=== PATIENT | male | born 1985 | race Caucasian/White ===

== ENCOUNTER 2023-12-03 18:13 | Outpatient (OUT) | payer BC, SELFPAY ==
--- NOTE | 2023-12-03 | XR_ITS ---
[facility] [place] [id number] Patient Name: NEGIN URBAN MRN: [id number] date: 1985 Sex: M Assigned Patient Location: [facility] Current Patient Location: Accession/Order Number: [id number] Exam Date: 12/03/2023 18:25 Report Date: 12/05/2023 04:49 At the request of: MARC LI Procedure: XR lumbar spine min 4V EXAMINATION: XR lumbar spine min 4V HISTORY: LOW BACK PAIN , chronic COMPARISON: No relevant comparison available. FINDINGS: BONES: No significant spondylosis, scoliosis, fracture, or visible bony lesion. DISC SPACES: Mild-moderate narrowing L1-L2, L5-S1. PARASPINOUS: Negative. No paraspinous abnormality is seen. OTHER: Negative. XR/XR lumbar spine min 4V IMPRESSION: 1. Disc space narrowing at L1-L2 and L5-S1 which may contribute to patient's symptoms. Consider MRI for further evaluation. Electronically authenticated by: VERENA SEQUEIRA Date: 12/05/2023 04:49
--- NOTE | 2023-12-03 | US_ITS ---
[facility] [place] [id number] Patient Name: NEGIN URBAN MRN: [id number] date: 1985 Sex: M Assigned Patient Location: RAD Current Patient Location: RAD Accession/Order Number: [id number] Exam Date: 12/03/2023 19:00 Report Date: 12/05/2023 05:24 At the request of: MARC LI Procedure: US extremity nonvascular RT EXAMINATION: US extremity nonvascular RT HISTORY: Right inguinal hernia COMPARISON: No relevant comparison available. FINDINGS: Right inguinal region evaluation demonstrates active herniation of soft tissue into the inguinal canal during Valsalva up to 5.8 x 0.6 x 2.9 cm in size. Left inguinal region evaluation demonstrates active herniation of soft tissue into the inguinal canal during Valsalva up to 2.2 x 0.8 x 1.8 cm. US/US extremity nonvascular RT IMPRESSION: 1. Bilateral inguinal hernias without incarceration. Electronically authenticated by: VERENA SEQUEIRA Date: 12/05/2023 05:24
== END 2023-12-03 18:14 | disposition home or self-care (01) ==
LOC: RAD 18:14
PROVIDERS: PCP Nurse Practitioner Family; Visit Provider Nurse Practitioner Family
DX: M54.50 Low back pain, unspecified (principal); K40.20 Bilateral inguinal hernia, without obstruction or gangrene, not specified as recurrent
CPT/HCPCS: 72110; 76882

== ENCOUNTER 2024-01-28 07:26 | Outpatient (OUT) | payer BC, SELFPAY ==
--- OUTSIDE RECORDS SUMMARY | 2024-01-28 07:29 | XMS_ITS | CCD ---
Author Organization [facility] Care Team Providers Care Management Rep Name Role Phone MARC LI Primary Care Physician [phone] MARC LI Referring John Kyle Attending Unavailable MARC LI Referring Jonh Kyle Attending Unavailable Allergies Allergy Classification Reported Allergen(s) Allergy Type Date of Onset Reaction(s) Facility (1 source) No Known Medication Allergies; Translations: [No Known Medication Allergies] Propensity to adverse reactions (disorder) [facility] Repository Problems Problem Classification Problem Date Documented Da te Episodic/Chronic Abdominal hernia (6 sources) Right inguinal hernia ; Translations: [Unilateral inguinal hernia, without obstruction or gangrene, not specified as recurrent] Onset: 12-31-2023 11-28-2023 Episodic Disorders of teeth and jaw (5 sources) Dental caries; Translations: [Dental caries, unspecified] 11-28-2023 Episodic Spondylosis; intervertebral disc disorders; other back problems (4 sources) Low back pain; Translations: [Low back pain] 11-28-2023 Episodic Results Test Name Value Interpretation Reference Range Facil ity Consent for Procedure/Surger yon 01-01-2024 Consent for Procedure/Surgery [id number] #1.00TIFF Normal [facility] Facesheeton 01-01-2024 Facesheet [id number]# 1.00TIFF Normal [facility] Ambulatory Visit Summaryon 0 12-31-2023 Ambulatory Visit Summary NEGIN URBAN :1985 Visit Date:12/31/2023 Ambulatory Visit Instructions Your Diagnosis Reducible right inguinal hernia Your Care Team Attending Physician - John WILLETT MD Primary Care Physician - MARC LI CNP Referring Physician - MARC LI CNP Procedures Performed None. Discharge Vitals Heart Rate (Peripheral) 72 Respiratory Rate 16 Blood Pressure 114/78 Height 180.34 cm Height 71 in Weight 81.2 kg Weight 178.64 lb BMI 24.97 Allergies No Known Allergies No Known Medication Allergies Problems Ongoing - Any problem that you are currently receiving treatment for. Dental caries Reducible right inguinal hernia Patient Survey You may receive a survey via text or e-mail asking about your office visit. Please share your experience with us by completing your survey. We appreciate your feedback and thank you for choosing us for your care. Normal [facility] Physician Referralon 024 Physician Referral [id number] #1.00TIFF Normal [facility] RAD - Ultrasound Reporton RAD - Ultrasound Report [id number] #1.00TIFF Normal [facility] Urgent Care Office/Clinic No luly 11-16-2021 Urgent Care Office/Clinic Note Chief Complaint Sinus congestion for 2 weeks. History of Present Illness This is a 36-year-old male patient presenting to urgent care this afternoon with complaints of of nasal/sinus congestion with thick drainage and facial pressure for at least 2 weeks. Patient reports that over the last few days he is also began to develop a cough occasionally productive of sputum. Patient reports he has been taking Mucinex in attempt to treat his symptoms, he states he felt like it was working at first but that is no longer the case. Patient denies any known sick contacts or exposures. Patient denies nausea, vomiting, diarrhea or change in sense of taste or smell. Patient denies fevers, chills, body aches or fatigue. Review of Systems General: No fever, chills, body aches or fatigue. HEENT: No eye pain. No ear pain. Patient reports nasal/sinus congestion with pressure and drainage, denies sore throat. Cardiovascular: No chest pain, palpitations, or syncope. Pulmonary: No shortness of breath, wheezing. Patient reports nonproductive cough. GI: No nausea, vomiting or diarrhea. No abdominal pain. Musculoskeletal: No weakness, joint pain, back pain. No myalgias. Neuro: No headache. No dizziness. Physical Exam General: well-developed, in no acute distress. Patient's voice sounds nasally congested. Neuro: Alert and oriented. Gait is steady. Speech is clear and appropriate. Eyes: Normal sclera. Nose: No visible drainage. Ears: Canals visualized without any erythema, edema, or discharge. Minimal cerumen visualized in the canals bilaterally. TM's visible and intact, pearly banda. No erythema, edema, or presence of a fluid line bilaterally. Good light reflex. Pharynx: Oropharynx moist, pink without erythema, edema, or exudate. Mucous membranes moist. Sinuses: Moderate tenderness of the frontal and maxillary sinuses. Neck: Trachea midline. No lymphadenopathy. CV: Regular rate and rhythm. No murmurs, gallops, or rubs. Lungs: Clear to auscultation bilaterally. No wheezes, crackles, or rhonchi. Good air exchange bilaterally. Skin: Warm, dry, intact. No rashes, lesions, or open wounds appreciated on exposed areas of skin. Additional Vitals No qualifying data available. Assessment/Plan 1. Upper respiratory infection Take medication as prescribed. Symptomatic treatment at home. Increase fluid intake and rest. Use a cool mist humidifier, Vicks Vapor rub, and elevating head of bed for sleep. May take Tylenol (650 mg every 6 hours) and ibuprofen (up to 800 mg every 8 hrs) as directed on packaging. Recommend bozd-hwe-lpkmnzz daytime antihistamine such as Zyrtec, Claritin or Pushpa, as well as fluticasone (Flonase) nasal spray daily to help with your nasal congestion/drainage. Emxp-dfv-geazjcy Delsym (dextromethorphan) every 12 hours as needed for dry cough. Iecl-sue-gtluvyg Mucinex (Guifenisen) for congestion, if your cough is nonproductive. [place] nasal spray (or generic saline spray) for nasal congestion. Follow up with primary care physician in the next 5-7 days or sooner if needed. Go to emergency department for new or worsening of symptoms. Review attached education for viral illness. Ordered: amoxicillin-clavulan ate, 1 tabs, Oral, BID, X 7 days, # 14 tabs, 0 Refill(s), 11/23/21 16:57:00 EDT benzonatate, 1 caps, Oral, TID, PRN, X 7 days, # 21 caps, 0 Refill(s), 11/23/21 16:57:00 EDT Medical Decision Making Chronic conditions NOT treated during this visit that affected my overall medical decision making: [] Treatment plans discussed but not opted for at this time: [] Prescribed medication that requires intensive monitoring for toxicity: [] I have reviewed the patient?s medication list for medication interactions/contrai ndications and/or for upcoming procedures: [yes or no] Time Spent with the Patient I have personally spent [15] minutes on this date, directly related to today's patient visit, including pre and post visit work, for this date of service. Time listed does not include time spent on separately billable services. Physician Comments Assessment and plan of care discussed with patient, all questions were answered, and patient is agreeable to the plan of care as written. Problem List/Past Medical History Ongoing No qualifying data Historical No qualifying data Medications Augmentin 875 mg-125 mg oral tablet, 1 tabs, Oral, BID benzonatate 200 mg oral capsule, 200 mg= 1 caps, Oral, TID, PRN Allergies No active allergies Electronically signed by Amador Goodson 11/16/21 17:09 EDT Normal [facility] Vital Signs Date Time Vital Sign Value Performing Clinician Billy gifford 12-31-2023 13:40-0400 Blood Pressure Location John WILLETT [facility] 12-31-2023 13:40-0400 Diastolic blood pressure 78 mm[Hg] John WILLETT [facility] 12-31-2023 13:40-0400 Heart rate 72 /min John WILLETT [facility] 12-31-2023 13:40-0400 Respiratory rate 16 /min John WILLETT [facility] 12-31-2023 13:40-0400 Systolic blood pressure 114 mm[Hg] John WILLETT [facility] 11-28-2023 09:29-0400 Body height 180.34 cm [facility] 11-28-2023 09:29-0400 Body mass index (BMI) [Ratio] 25.4 kg/m2 [facility] 11-28-2023 09:29-0400 Body weight 82.55 kg [facility] 11-28-2023 09:29-0400 Diastolic blood pressure 82 mm[Hg] [facility] 11-28-2023 09:29-0400 Heart rate 77 /min [facility] 11-28-2023 09:29-0400 SaO2% (BldA) [Mass fraction] 99 % [facility] 11-28-2023 09:29-0400 Systolic blood pressure 122 mm[Hg] [facility] Encounters Encounter Date Encounter Type Care Provider Facility Start: 12-31-2023 End: 01-01-2024 [facility] Start: 12-31-2023 End: 12-31-2023 Patient encounter procedure John WILLETT [facility] Start: 12-30-2023 ambulatory MARC Quezada acility: [facility] Start: 12-09-2023 ambulatory MARC LI Fac ility:[facility] Start: 11-28-2023 End: 11-28-2023 ambulatory [facility] Work Phone: Start: 11-28-2023 End: 11-28-2023 Patient encounter procedure [facility] Work Phone: Procedures Date Procedure Procedure Detail Performing Clinician None (qualifier value) Lucian WILLETT Plan of Treatment Date Care Activity Detail Author Start: 11-28-2023 Patient referral [facility] Work Phone: Patient Education Low back pain in adults [facility] Work Phone: Patient referral [facility] Work Phone: [facility] XR Lumbar spine GE 4 Views [facility] Payers Date Payer Category Payer Unknown [id number] 1985 Unknown [id number] 1985 Unknown [id number] Social History Date Type Detail Facility Start: 11-28-2023 Tobacco smoking stat [facility] Never smoked tobacco (finding) [facility] Start: 1985 Sex Assigned At Male Pilar [facility] Start: 12-31-2023 Tobacco smoking status Ex-smoker (fi nding) [facility] Tobacco smoking status Never [facility] Sex Assigned At Male [facility] Functional Status Date Assessment Result Facility 12-31-2023 Functional Status N/A [facility] Clinical Note 12-31-2023 Note Date & Type Note Facility 12-31-2023 Note Chief Complaint consultation for hernia HPI Staff 38 year old male presents on consultation from Marc Li for right inguinal hernia. Reports noting bulge to right inguinal area several months ago. Verbalized bulge has significantly increased in size over time. Reports reduces easily when lying down. Denies this ever being red. Denies soreness or discomfort. Denies scrotal edema or pain. Reports noting fullness to left inguinal area but denies bulge. Denies nausea or vomiting. Denies bowel changes. US completed 12/02 with bilateral inguinal hernia. History of Present Illness 38 yo male referred for right inguinal bulge, noticed this several months ago; some soreness with lifting/straining; no bowel changes, no N/V; no previous abd operations; recent US with right hernia sac, tiny bulge noted on left; no asa use, occasional ibuprofen; no tobacco use. Review of Systems PHQ Score Initial Depression Screen Score: 0 SCORE ROS - Provider Constitutional: no fever, no sweats, no weight loss. Eyes: no glasses, no blurred vision, no visual loss. ENMT: no dentures, no hoarseness, no swallowing difficulties, no hearing loss, no ear infection(s), no nose bleeds. Cardiovascular: normal blood pressure, no chest pain, regular heartbeat, no heart murmur. Respiratory: no shortness of breath, no cough, no asthma, no wheezing. Gastrointestinal: no nausea, no vomiting, no diarrhea, no constipation, no blood in stool, no change in bowel habits, mild abdominal pain, no hepatitis. Genitourinary: no kidney stones, no urine infection, no dysuria. Musculoskeletal: no pain, no weakness. Skin: no changing moles, no rash, no skin lumps. Neurologic: no seizures, no epilepsy, no headache. Psychiatric: no emotional or psychiatric problem. Heme/Lymph: no bleeding problems, no anemia, no blood clots, no transfusions. Allergy/Immunologic: no swollen lymph nodes/glands, no IV drug abuse. Other: Additional ROS info: Except as noted in the above Review of Systems and in the History of Present Illness, all other systems have been reviewed and are negative or noncontributory. Physical Exam Vitals & Measurements HR: 72(Peripheral) RR: 16 BP: 114/78 HT: 71 in HT: 180.34 cm WT: 81.2 kg WT: 178.64 lb BMI: 24.97 HEENT: normal conjunctiva, sclera clear, no scleral icterus, EOM intact, PERRLA, oral mucosa moist without lesions. Neck: trachea midline, no mass, symmetric, no thyromegaly or nodules, no adenopathy Respiratory: lungs CTA, respirations non labored. Cardiovascular: regular rate and rhythm, no murmur, no pedal edema or varicosities. Gastrointestinal: soft, non distended, no tenderness, no masses, reducible right inguinal hernia, no skin changes; no palpable left inguinal hernia, diastasis recti no, no hepatosplenomegaly; normal bs Lymphatic: no cervical adenopathy, no supraclavicular adenopathy, no inguinal adenopathy Musculoskeletal: normal gait, digits and nails without infection, nodes, cyanosis, clubbing. Skin: no rashes, no lesions, no ulcers, no subcutaneous nodules, induration. Psychiatric/Neuro: oriented to time, place, person, judgement normal, affect appropriate for age, insight intact, no focal deficits. Tests: , x-rays reviewed, review of old records completed , Discussed surgical options, risks, and possible complications with patient. Assessment/Plan 1. Reducible right inguinal hernia (K40.90: Unilateral inguinal hernia, without obstruction or gangrene, not specified as recurrent) plan right inguinal herniorrhaphy with mesh insertion, informed consent obtained. signs/symptoms of incarceration/strangulation of hernia explained in detail, and patient understands that he should seek prompt medical evaluation if they were to occur. Ancef 2 gms IV prior to OR TAP block per anesthesia SCDs Follow-up No qualifying data available Problem List/Past Medical History Ongoing Dental caries Reducible right inguinal hernia Historical No qualifying data Procedure/Surgical History None. Medications No active medications Allergies No Known Allergies No Known Medication Allergies Social History Alcohol - Denies Alcohol Use, 12/31/2023 Substance Abuse - Denies Substance Abuse, 12/31/2023 Tobacco Former smoker, quit more than 30 days ago Tobacco Use:. Never Smokeless Tobacco Use:. Cigarettes, Started age 20.0 Years. Stopped age 25 Years., 12/31/2023 Family History Family history is negative [facility] Comment on above: Result Comment: Elec tronically Signed By: BRENNON VEGA, John Farrell\Date and Time Signed: 12/31/23 14:13 EDT Clinical Note 11-16-2021 Note Date & Type Note Facility 11-16-2021 Note Patient Education Ma terials Name: Negin Urban Current Date: 11/16/2021 17:08:07 [facility] : 1985 The following sheet(s) are the Patient Education Leaflets for Negin Urban Ambulatory Upper Respiratory Illness (Adult) You have an upper respiratory illness (URI), which is another term for the common cold. This illness is contagious during the first few days. It is spread through the air by coughing and sneezing. It may also be spread by direct contact (touching the sick person and then touching your own eyes, nose, or mouth). Frequent handwashing will decrease risk of spread. Most viral illnesses go away within 7 to 10 days with rest and simple home remedies. Sometimes the illness may last for several weeks. Antibiotics will not kill a virus, and they are generally not prescribed for this condition. Home care ? If symptoms are severe, rest at home for the first 2 to 3 days. When you resume activity, don't let yourself get too tired. ? Don't smoke. If you need help stopping, talk with your healthcare provider. ? Avoid being exposed to cigarette smoke (yours or others?). ? You may use acetaminophen or ibuprofen to control pain and fever, unless another medicine was prescribed. If you have chronic liver or kidney disease, have ever had a stomach ulcer or gastrointestinal bleeding, or are taking blood-thinning medicines, talk with your healthcare provider before using these medicines. Aspirin should never be given to anyone under 18 years of age who is ill with a viral infection or fever. It may cause severe liver or brain damage. ? Your appetite may be poor, so a light diet is fine. Stay well hydrated by drinking 6 to 8 glasses of fluids per day (water, soft drinks, juices, tea, or soup). Extra fluids will help loosen secretions in the nose and lungs. ? Dniv-ppq-mjawgsz cold medicines will not shorten the length of time you?re sick, but they may be helpful for the following symptoms: cough, sore throat, and nasal and sinus congestion. If you take prescription medicines, ask your healthcare provider or pharmacist which ppzs-wfa-dcrovik medicines are safe to use. (Note: Don't use decongestants if you have high blood pressure.) Follow-up care Follow up with your healthcare provider, or as advised. When to seek medical advice Call your healthcare provider right away if any of these occur: ? Cough with lots of colored sputum (mucus) ? Severe headache; face, neck, or ear pain ? Difficulty swallowing due to throat pain ? Fever of 100.4?F (38?C) or higher, or as directed by your healthcare provider Call 911 Call 911 if any of these occur: ? Chest pain, shortness of breath, wheezing, or difficulty breathing ? Coughing up blood ? Very severe pain with swallowing, especially if it goes along with a muffled voice ? [id number] [employer] [place] [address]. All rights reserved. This information is not intended as a substitute for professional medical care. Always follow your healthcare professional's instructions. . Upper respiratory infection Take medication as prescribed. Symptomatic treatment at home. Increase fluid intake and rest. Use a cool mist humidifier, Vicks Vapor rub, and elevating head of bed for sleep. May take Tylenol (650 mg every 6 hours) and ibuprofen (up to 800 mg every 8 hrs) as directed on packaging. Recommend jwaw-vnu-xiwnzft daytime antihistamine such as Zyrtec, Claritin or Pushpa, as well as fluticasone (Flonase) nasal spray daily to help with your nasal congestion/drainage. Rysi-ary-rbpjxgb Delsym (dextromethorphan) every 12 hours as needed for dry cough. Pzjp-xbm-yeikedw Mucinex (Guifenisen) for congestion, if your cough is nonproductive. [place] nasal spray (or generic saline spray) for nasal congestion. Follow up with primary care physician in the next 5-7 days or sooner if needed. Go to emergency department for new or worsening of symptoms. Review attached education for viral illness. Ordered: amoxicillin-clavulanate, 1 tabs, Oral, BID, X 7 days, # 14 tabs, 0 Refill(s), 11/23/21 16:57:00 EDT benzonatate, 1 caps, Oral, TID, PRN, X 7 days, # 21 caps, 0 Refill(s), 11/23/21 16:57:00 EDT [facility] Evaluation + Plan note Note Date & Type Note Facility Evaluation + Plan note No data available for this section [facility] Evaluation note Note Date & Type Note Facility Evaluation note Diagnosis Onset Date Dental decay acute Lower back pain acute Right inguinal hernia [facility] Work Phone: Hospital Discharge instructions Note Date & Type Note Facility Hospital Discharge instructions Ambulatory OrdersReferral to Oral Surgeon Time Frame: 11/28/23, Location: None [facility] Work Phone: Hospital Discharge instructions Note Date & Type Note Facility Hospital Discharge instructions No data available for this section [facility] Progress note Note Date & Type Note Facility Progress note No data available for this section [facility] Summary Purpose Family History No Family History Records Found No data available for this section No Family History Records Found Advance Directives No Advanced Directives Records Found Advance Directive Response Recorded Date/ Time Advance Directives No November 24 5:10pm Chief Complaint and Reason for Visit Chief Complaint Establish Reason for Visit Dental decay Lower back pain Right inguinal hernia Additional Source Comments (unrecognized sect ion and content) No Status Records FoundNo Status Records Found INFORMATION SOURCE (unrecogn ized section and content) DATE CREATED AUTHOR 11/19/2021 [facility] DATE CREATED AUTHOR AUTHOR'S ORGANIZ ATION 01/02/2024 [facility] Care Teams (unrecognized sec tion and content) Team Status: Active Member Role Status Dates Marc Li APRN [employer] HELPER-Kahlil Primary Care Provider Active Team Status: Inactive Member Role Status Dates RODOLFO Russo Primary Care Provider, Attending Provider Active Start: November 28, 2023 End: November 28, 2023 Goals (unrecognized section and content) Goals may be documented in a n alternate sectionGoals may be documented in an alternate section No data available for this section FOR RECORDS PERTAINING TO PATIENTS WHO ARE OR HAVE BEEN ENROLLED IN A CHEMICAL DEPENDENCY/SUBSTANCEABUSE PROGRAM, SOME INFORMATION MAY BE OMITTED. This clinical summary was aggregated from multiple sources. Caution should be exercised in using it in the provision of clinical care. This summary normalizes information from multiple sources, and as a consequence, information in this document may materially change the coding, format and clinical context of patient data. In addition, data may be omitted in some cases. CLINICAL DECISIONS SHOULD BE BASED ON THE PRIMARY CLINICAL RECORDS. [facility] [employer] [facility]. provides no warranty or guarantee of the accuracy or completeness of information in this document.
--- NOTE | 2024-01-28 08:07 | XR_ITS ---
The [address] [address] Patient Name: NEGIN URBAN MRN: [id number] date: 1985 Sex: M Assigned Patient Location: [facility] Current Patient Location: Accession/Order Number: [id number] Exam Date: 01/28/2024 08:16 Report Date: 01/29/2024 09:38 At the request of: SIMI WILLETT Procedure: XR chest 2V EXAMINATION: XR chest 2V HISTORY: Preop exam COMPARISON: No relevant comparison available. FINDINGS: LUNGS: No significant pulmonary parenchymal abnormalities. VASCULATURE: No increased pulmonary vasculature. PLEURA: No pneumothorax, effusion, or pleural thickening. CARDIAC: No cardiomegaly or cardiac silhouette abnormality. MEDIASTINUM: No visible mass or adenopathy. BONES: No fracture or visible bone lesion. OTHER: Negative. XR/XR chest 2V IMPRESSION: 1. Normal chest. Electronically authenticated by: VERENA SEQUEIRA Date: 01/29/2024 09:38
== END 2024-01-28 07:27 | disposition home or self-care (01) ==
LOC: PST 07:28
PROVIDERS: PCP Nurse Practitioner Family; Visit Provider Surgery
DX: Z01.810 Encounter for preprocedural cardiovascular examination (principal); K40.90 Unilateral inguinal hernia, without obstruction or gangrene, not specified as recurrent
CPT/HCPCS: 71046

== ENCOUNTER 2024-02-11 09:54 | Day surgery (SDC) | payer BC, SELFPAY ==
[2024-01-28 07:43] VITALS: BP 118/70; PULSE 69; TEMP 36.4; O2SAT 98; BMI 25.1
[2024-02-11] VITALS (11 sets, daily range): BP systolic 107–132; BP diastolic 65–82; PULSE 45–69; TEMP 36.1–36.5; O2SAT 96–100; BMI 24.5
--- NOTE | 2024-02-11 | OP_ITS ---
OPERATION DATE: 02/11/2024 PREOPERATIVE DIAGNOSIS: Right inguinal hernia. POSTOPERATIVE DIAGNOSIS: Indirect right inguinal hernia. PROCEDURE: Right inguinal herniorrhaphy with mesh insertion. SURGEON: John Rueda M.D. ANESTHESIA: General with laryngeal mask airway, as well as right sided TAP block per Dr. Pink. ESTIMATED BLOOD LOSS: Less than 5 mL. INDICATIONS AND CONSENT: Patient is a 38-year-old male with long history of enlarging, symptomatic, reducible right inguinal hernia. Indications, risks, benefits, alternatives of proceeding with herniorrhaphy with mesh insertion were explained extensively to the patient, including the risks of bleeding, infection, scarring, pain, recurrence, nerve injury, testicular injury, blood clot, pulmonary embolus, heart attack, anesthetic complications, need for further surgery or mesh removal. All of his questions were answered. Informed consent was obtained. PROCEDURE: Patient brought to the operating room, placed in the supine position. He had previously undergone a TAP block per Dr. Pink. General anesthesia was induced. He was prepped and draped in the usual sterile fashion. A right groin incision was made with the scalpel, in the area of the skin crease, and carried down through subcutaneous tissue using sharp dissection, as well as electrocautery. David?s fascia was divided. The external oblique was opened along the direction of its fibers, down through the external inguinal ring. The cord structures were mobilized and retracted with a Álvaro drain. There was noted to be an indirect sac that was chronically scarred. It was freed up from the cord structures, all the way up to the internal ring. The sac was opened. It was empty. It was closed with a purse string for a high ligation and excised. There was good hemostasis. The incision was then copiously irrigated. There was good hemostasis. There was no evidence of a direct hernia. There was a branch of the ilioinguinal nerve that was in the area where the mesh would lay, so this was cut and the ends were ligated with 3- 0 Vicryl tie. The Bard 5 x 10 cm mesh was trimmed and a keyhole was created. It was placed in the floor of the inguinal canal. The arms were placed around the cord structures without undue tension on the cord structures. It was then secured circumferentially using interrupted 3-0 Vicryl suture. There was good hemostasis. It was irrigated with antibiotic saline. The external oblique was closed with a running 3-0 Vicryl suture. The remaining Exparel solution was injected into the subcutaneous tissues. David?s fascia was re-approximated with interrupted 3-0 Monocryl suture. The skin was then closed with a running 4-0 subcuticular Monocryl suture and skin glue. Sterile pressure dressing was applied. Sponge and needle counts were correct x3 per nursing personnel. Patient tolerated procedure well, was sent to recovery room in good condition. CC: CORKY Russo
--- OUTSIDE RECORDS SUMMARY | 2024-02-11 10:16 | XMS_ITS ---
Patient Summarization (C-CDA 2.1 CCD) Created on: February 11, 2024 RAMAN URBAN : 1985 Sex: Male Author Organization Sample organization Care Team Providers Care Receiver Bulk System Name Role Phone NATIVIDAD LI Primary Care Physician John WILLETT Attending NATIVIDAD Cornejo Referring Rickab John Ray Attending NATIVIDAD Cornejo Referring Pratik le Allergies Allergy Classification Reported Allergen(s) Allergy Type Date of Onset Reaction(s) Facility (1 source) No Known Medication Allergies; Translations: [No Known Medication Allergies] Propensity to adverse reactions (disorder) [facility] Encounters Encounter Date Encounter Type Care Provider Facility Start: 12-31-2023 End: 12-31-2023 ambulatory John R NILL Facility: [facility] Start: 12-31-2023 End: 12-31-2023 Patient encounter procedure John R NILL [facility] Start: 12-30-2023 ambulatory John R NILL Facility : [facility] Start: 12-09-2023 ambulatory John NILL Facility:[facility] Start: 11-28-2023 End: 11-28-2023 ambulatory [facility] Work Phone: Start: 11-28-2023 End: 11-28-2023 Patient encounter procedure [facility] Physician [facility] Work Phone: Payers Date Payer Category Payer Unknown [id number] 1985 Unknown [id number] 1985 Unknown [id number] Plan of Treatment Date Care Activity Detail Author Start: 11-28-2023 Patient referral [facility] Work Phone: Patient Education Low back pain in adults [facility] Work Phone: Patient referral [facility] Work Phone: US Extremity [facility] XR Lumbar spine GE 4 Views [facility] Problems Problem Classification Problem Date Documented Da [...] pain; Translations: [Low back pain] 11-28-2023 Episodic Procedures Date Procedure Procedure Detail Performing Clinician None (qualifier value) Lucian WILLETT Results Test Name Value Interpretation [facility] 01-30-2024 Insurance Correspondence [id number] 459#1.00TIFF [facility] Consent for Procedure/Surger yon 01-01-2024 Consent for Procedure/Surgery [id number] CF#1.00TIFF [facility] Facesheeton 01-01-2024 Facesheet [id number] 4#1.00TIFF [facility] Ambulatory Visit Summaryon 0 12-31-2023 Ambulatory Visit Summary RAMAN URBAN :1985 Visit Date:12/31/2023 Ambulatory Visit Instructions Your Diagnosis Reducible right inguinal hernia Your Care Team Attending Physician - John WILLETT MD Primary Care Physician - NATIVIDAD LI CNP Referring Physician - NATIVIDAD LI CNP Procedures Performed None. Discharge Vitals [...] for choosing us for your care. [facility] Physician Referralon 024 Physician Referral [id number] 67#1.00TIFF [facility] RAD - Ultrasound Reporton RAD - Ultrasound Report [id number] 7D#1.00TIFF [facility] Urgent Care Office/Clinic No luly 11-16-2021 [...] 8 hrs) as directed on packaging. Recommend zmlm-rsp-fvyzbpe daytime antihistamine such as Zyrtec, Claritin or Pushpa, as well as fluticasone (Flonase) nasal spray daily to help with your nasal congestion/drainage . Yigl-hkc-mqbwxjs Delsym (dextromethorphan) every 12 hours as needed for dry cough. Cosh-qes-ntowswe Mucinex (Guifenisen) for congestion, if your cough is nonproductive. [place] nasal spray (or generic saline spray) for nasal congestion. Follow up with primary care physician in the next 5-7 days or sooner if needed. Go to emergency department for new or worsening of symptoms. Review attached education for viral illness. Ordered: amoxicillin-clavula mechelle, 1 tabs, Oral, BID, X 7 days, [...] reviewed the patient?s medication list for medication interactions/contra indications and/or for upcoming procedures: [yes or no] [...] by Amador Goodson 11/16/21 17:09 EDT Normal [facility] Social History Date Type Detail Facility Start: 12-31-2023 Tobacco smoking status Ex-smoker (fi nding) [facility] Start: 11-28-2023 Tobacco smoking stat us NHIS Never smoked tobacco (finding) [facility] Start: 1985 Sex Assigned At Male [facility] Tobacco smoking status Never [facility] Sex Assigned At Male [facility] Vital Signs Date Time Vital Sign Value Performing Clinician Billy gifford 12-31-2023 13:40-0400 Blood Pressure Location John WILLETT [facility] 12-31-2023 13:40-0400 Diastolic blood pressure 78 mm[Hg] John PALL [facility] 12-31-2023 13:40-0400 Heart rate 72 /min John PALL [facility] 12-31-2023 13:40-0400 Respiratory rate 16 /min John PALL [facility] 12-31-2023 13:40-0400 Systolic blood pressure 114 mm[Hg] John PALL [facility] 11-28-2023 09:29-0400 Body height 180.34 cm [facility] 11-28-2023 09:29-0400 Body mass index (BMI) [Ratio] 25.4 kg/m2 [facility] 11-28-2023 09:29-0400 Body weight 82.55 kg [facility] 11-28-2023 09:29-0400 Diastolic blood pressure 82 mm[Hg] [facility] 11-28-2023 09:29-0400 Heart rate 77 /min [facility] 11-28-2023 09:29-0400 SaO2% (BldA) [Mass fraction] 99 % [facility] 11-28-2023 09:29-0400 Systolic blood pressure 122 mm[Hg] [facility] Functional Status Date Assessment Result Facility 12-31-2023 Functional Status N/A [facility] Clinical Note 12-31-2023 Note Date & Type Note Facility 12-31-2023 Note Chief Complaint consultation for hernia HPI Staff 38 year old male presents on consultation from Natividad Li for right inguinal hernia. Reports noting [...] 12/31/2023 Family History Family history is negative [facility] Comment on above: Result Comment: Elec tronically Signed By: BRENNON VEGA, John Farrell\Date and Time Signed: 12/31/23 14:13 EDT Clinical Note 11-16-2021 Note Date & Type Note Facility 11-16-2021 Note Patient Education Ma terials Name: Raman Urban Current Date: 11/16/2021 17:08:07 [place] : 1985 The following sheet(s) are the Patient Education Leaflets for Raman Urban Ambulatory Upper Respiratory Illness (Adult) You [...] secretions in the nose and lungs. ? Nhca-vtx-qyullfs cold medicines will not shorten the length of time you?re sick, but they may be helpful for the following symptoms: cough, sore throat, and nasal and sinus congestion. If you take prescription medicines, ask your healthcare provider or pharmacist which seqf-enn-zztiuwj medicines are safe to use. (Note: Don't [...] goes along with a muffled voice ? [id number] [employer]. [address] [place] [address]. All rights reserved. This information is not [...] 8 hrs) as directed on packaging. Recommend pynb-kft-iisiymr daytime antihistamine such as Zyrtec, Claritin or Pushpa, as well as fluticasone (Flonase) nasal spray daily to help with your nasal congestion/drainage. Gutm-wgg-gwzfqkw Delsym (dextromethorphan) every 12 hours as needed for dry cough. Spot-qbm-zplmska Mucinex (Guifenisen) for congestion, if your cough is nonproductive. [place] nasal spray (or generic saline spray) for [...] 21 caps, 0 Refill(s), 11/23/21 16:57:00 EDT [facility] Evaluation + Plan note Note Date & Type Note Facility Evaluation + Plan note No data available for this section [facility] Evaluation note Note Date & Type Note Facility Evaluation note Diagnosis Onset Date Dental decay acute Lower back pain acute Right inguinal hernia [facility] Work Phone: Hospital Discharge instructions Note Date & Type Note Facility Hospital Discharge instructions Ambulatory OrdersReferral to Oral Surgeon Time Frame: 11/28/23, Location: None Selected [facility] Work Phone: Hospital Discharge instructions Note Date & Type Note Facility Hospital Discharge instructions No data available for this section [facility] Progress note Note Date & Type Note Facility Progress note No data available for this section [facility] Summary Purpose Family History No [...] section and content) DATE CREATED AUTHOR 11/19/2021 [facility] DATE CREATED AUTHOR AUTHOR'S ORGANIZ ATION 02/01/2024 [facility] Care Teams (unrecognized sec tion and content) Team Status: Active Member Role Status Dates Natividad Li APRN [facility] ATTENDANT-C Primary Care Provider Active Team Status: Inactive Member Role Status Dates Natividad Li APRN [facility] ATTENDANT-Kahlil Primary Care Provider, Attending Provider Active Start: [...] BE BASED ON THE PRIMARY CLINICAL RECORDS. [facility] [facility]. provides no warranty or guarantee of the accuracy or completeness of information in this document.
[2024-02-11] MEDS: LACTATED RINGER'S SOLUTION 1,000 ML 50 ML IV ×2 (10:20→12:45)
--- NOTE | 2024-02-11 11:13 | PC.NURSE ---
Patient was consented for peripheral block per Dr Pink. Timeout performed per protocol. Patient placed on monitor and O2 per protocol. Patient positioned and medicated per Dr Pink. Bedside ultrasound used to locate site. Block started at 1059 and completed at 1104. Patient tolerated procedure well.
[2024-02-11] MEDS: CEFAZOLIN SODIUM/DEXTROSE,ISO 2 GM/50 ML PIGGYBACK IV (11:51)
[2024-02-11] MEDS: BUPIVACAINE LIPOSOME/PF 266 MG/13.3 ML VIAL 13.3000000000000007 MG INJ (12:05)
[2024-02-11] MEDS: BUPIVACAINE HCL 0.25% PF 25 MG/10 ML VIAL INJ (12:05)
[2024-02-11] MEDS: 0.9 % SODIUM CHLORIDE 10 ML INJ (12:05)
[2024-02-11] MEDS: CEFAZOLIN SODIUM 1,000 MG in 0.9 % SODIUM CHLORIDE 10 ML 10 MG IRR (13:13)
[2024-02-11] MEDS: ONDANSETRON PF 4 MG/2 ML VIAL IV (14:44)
--- NOTE | 2024-02-11 16:15 | PC.NURSE ---
PATIENT GOT UP TO ATTEMPT TO URINATE. DID NOT VID VOMITTED ALOT. ADMINISTERING DIFFERENT MED FOR NAUSEA.
--- NOTE | 2024-02-11 16:23 | PC.NURSE ---
WENT TO ADMINISTER HALDOL FOR NAUSEA AND PATIENT STATES THAT HE FEELS BETTER AFTER HE VOMITED. REFUSING HALDOL AT THIS TIME.
--- NOTE | 2024-02-11 16:59 | PC.NURSE ---
PATIENT URINATED AT THIS TIME A LARGE UNMEASURED AMOUNT.
--- NOTE | 2024-02-11 17:01 | PC.NURSE ---
1700 REMOVED IV INTACT PATIENT IS DISCHARGED
== END 2024-02-11 17:00 | disposition home or self-care (01) ==
PROVIDERS: PCP Nurse Practitioner Family; Visit Provider Surgery
PROC: (CPT 00830; principal; 2024-02-11 11:05)
DX: K40.90 Unilateral inguinal hernia, without obstruction or gangrene, not specified as recurrent (principal)
CPT/HCPCS: 00830; 49505; 64488; 88302; 94667; C1781; J0665; J0690; J1100; J2250; J2405; J2704; J3010